=== PATIENT | female | born 1980 | race Caucasian/White ===

== ENCOUNTER 2016-12-29 00:20 | Inpatient (IN) | payer MEDICAID ==
[~2016-12-29] VITALS: Ht 160 cm; Wt 100.3 kg
[2016-12-29 00:56] VITALS: Ht 160 cm; Wt 100.3 kg
[2016-12-29 00:57] VITALS: BP 124/78; PULSE 87; RESP 18
[2016-12-29] MEDS ORDERED: LACTATED RINGER'S 1,000 ML IV PRN (01:00)
[2016-12-29] MEDS ORDERED: LACTATED RINGER'S 1,000 ML IV SCH (01:02)
[2016-12-29] MEDS ORDERED: PRENAT PO (01:06)
--- NOTE | 2016-12-29 01:10 | TRIAGE ---
OB Triage Datetime Report Generated by CPN: 12/29/2016 01:10 Datetime: 12/29/2016 00:51 Assessment Type: Triage Maternal Assessment Level of Consciousness: Fully Conscious DTR's/Clonus: DTRs 2+; No Clonus Headache: Denies Blurred Vision: No Respiratory Effort: Unlabored Nausea/Vomiting: Denies RUQ Epigastric Pain: Denies Lower Extremities Edema: None Degree: None Upper Extremities Edema: None Degree: None Facial Edema: None Fall Risk Assessment History of Falling: (0) No Secondary Diagnosis: (0) No Ambulatory Aid: (0) Bedrest/Nurse Assist IV Therapy: (0) No Gait: (0) Normal/Bedrest/Immobile Mental Status: (0) Oriented to Own Ability Fall Score: 0 Fall Risk Score Definition: No Risk: No action required Datetime: 12/29/2016 00:49 Time of Arrival: 12/29/2016 00:20 EGA: 39.3 Arrived By: Wheelchair Arrived From: Home Chief Complaint: SROM Movement: Present Rupture of Membranes: Ruptured Vaginal Bleeding: Scant Vaginal Discharge: Present Recent Sexual Intercouse: Denies Abdominal Trauma: Not Applicable Patient Complaints: Other Initial Plan: NST, SVE Datetime: 12/29/2016 00:44 Stage of : OB Triage Vaginal Exam Dilatation (cms): 3.5 Effacement (%): 70 Station: -1 Exam By: SAJI Membrane Status: Ruptured Membranes Ruptured Date/Time: 12/29/2016 00:00
[2016-12-29] MEDS ORDERED: IBUPROFEN 600 MG TAB PO PRN (01:30)
[2016-12-29] MEDS ORDERED: OXYTOCIN 30 UNITS/LR 500 ML IV PRN (01:30)
[2016-12-29] MEDS ORDERED: OXYTOCIN 30 UNITS/LR 500 ML IV SCH ×3 (01:30→12:09)
[2016-12-29] MEDS ORDERED: METHYLERGONOVINE 0.2 MG INJ IM PRN (01:30)
[2016-12-29] MEDS ORDERED: MISOPROSTOL 200 MCG TAB PR PRN (01:30)
[2016-12-29] MEDS ORDERED: LIDOCAINE 1% (MPF) 30 ML INJ INJ PRN (01:30)
[2016-12-29] MEDS ORDERED: CARBOPROST 250 MCG INJ IM PRN (01:30)
[2016-12-29] MEDS ORDERED: AMPICILLIN 2 GM/NS (PMX) 100 ML IV ONE (01:30)
[2016-12-29 02:37] LABS: ADD SCAN DIFF NO
[2016-12-29 02:40] LABS: ABNORMAL IP MESSAGE 1; BASOPHILS % 0.3 % (0.0-2.0); EOSINOPHILS % 0.3 % (0.0-7.0); HEMATOCRIT 37.6 % (37.0-47.0); HEMOGLOBIN 12.7 g/dl (12.0-16.0); LYMPHOCYTES # 1.3 10^3/ul (0.8-2.9); LYMPHOCYTES % 18.3 % (15.0-51.0); MEAN CORPUSCULAR HEMOGLOBIN 28.6 pg (29.0-33.0); MEAN CORPUSCULAR HGB CONC 33.8 g/dl (32.0-37.0); MEAN CORPUSCULAR VOLUME 84.7 fl (82.0-101.0); MEAN PLATELET VOLUME 13.8 fl (7.4-10.4); MONOCYTE # 0.4 10^3/ul (0.3-0.9); MONOCYTES % 5.1 % (0.0-11.0); NEUTROPHIL # 5.2 10^3/ul (1.6-7.5); NEUTROPHILS % 75.7 % (39.0-77.0); PLATELET COUNT 178 10^3/UL (140-415); RED BLOOD COUNT 4.44 10^6/ul (4.20-5.40); RED CELL DISTRIBUTION WIDTH 14.1 % (11.5-14.5); WHITE BLOOD COUNT 6.9 10^3/ul (4.8-10.8)
[2016-12-29 02:57] LABS: INR 0.92; PARTIAL THROMBOPLASTIN TIME 27.6 Sec (25.0-35.0); PROTIME 12.4 Sec (12.2-14.2)
--- NOTE | 2016-12-29 04:34 | HP ---
Date/Time of Note Date/Time of Note DATE: 12/29/16 TIME: 04:24 OB - History Hx of Present Free Text/Dictation 36y.o A1(ect) at 39w3d came in after srom 20min prior to arrival. initial VE cx 3-4cm80% -1 clear fluid GBS unknown admitted for expectant management with ampicillin as protocol for unknown GBS. Chief Complaint: srom Estimated Due Date: January 02, 2017 : 2 Para: 0 Spontaneous : 1 Therapeutic : 0 Care: Limited Care Ultrasounds: Normal mid trimester US Obstetrical Complications: None Medical Complications: None Past Family/Social History * Past Medical, Surgical, Family and Obstetric Histories reviewed from chart. Blood Type: A+ Rubella: immune RPR/VDRL: Negative GBS Status: Unknown HBsAG: Negative OB Admission Exam Vital Signs Vital Signs Vital Signs Date Time Temp Pulse Resp B/P Pulse Ox O2 Delivery O2 Flow Rate FiO2 12/29/16 00:57 98.5 87 18 124/78 Room Air Physical Exam HEENT: WNL Heart: Rhythm Normal Lungs: Clear, Equal Abdomen: WNL Extremities: Normal Reflexes: Normal Cervical Dilatation: 3cm Effacement: 75% Station: -1 Membranes: Ruptured Amniotic Fluid: Clear Heart Rate: 140's Accelerations: Accelerations Present Decelerations: No Decelerations Varibility: Moderate Contractions on Admission: >10 Minutes Apart Intensity: Mild Last 72 hours Lab Results CBC & BMP 12/29/16 02:20 OB Assessment/Plan Reason for admission: rupture of membranes Plan: Expectant Management KHOA WINKLER MD December 29, 2016 04:34
[2016-12-29] MEDS ORDERED: AMPICILLIN 1 GM/NS (PMX) 50 ML IV SCH (05:30)
[2016-12-29] MEDS ORDERED: FENTAnyl 2MCG/ML-ROPIV 0.2% 100 ML ONE (06:43)
[2016-12-29] MEDS ORDERED: NALOXONE (0.4 MG/ML) INJ IV PRN (07:00)
[2016-12-29] MEDS ORDERED: FENTAnyl 2MCG/ML-ROPIV 0.2% 100 ML BAG EPI SCH (07:00)
[2016-12-29] MEDS ORDERED: ONDANSETRON 4 MG INJ IV PRN ×2 (07:00→12:30)
--- NOTE | 2016-12-29 09:13 | LDN ---
Date/Time of Note Date/Time of Note DATE: 12/29/16 TIME: 09:10 Delivery Summary Normal spontaneous vaginal delivery of a baby boy from OA position shoulders delivered without any difficulties the rest of the baby's body followed cord clamped after stopped pulsation placenta spontaneous expulsion inspected complete peroneal, vaginal exam no laceration estimated blood loss 200 mL Weeks of Gestation 39 weeks 3 days Placenta Delivered: Spontaneously Meconium: none Episiotomy: No Anesthesia type: Epidural Sponge & Needle done & correct: Yes All needle counts correct: Yes Any foreign bodies felt in the: No Problems: Infant Delivery Information Sex Sex: male Apgars 1 Minute: 8 Suctioning Nose & mouth suctioned at robert: Yes Delee suction performed: No Umbilical Cord Umbilical cord with: 3 Vessels Cord presentations: no nuchal cord Cord Blood was obtained: Yes ROCIO MACIAS MD December 29, 2016 09:13
--- NOTE | 2016-12-29 09:21 | HP ---
Date/Time of Note Date/Time of Note DATE: 12/29/16 TIME: 09:13 OB - History Hx of Present Free Text/Dictation 36 years old female 001 admitted to [facility] in labor pelvic examination on admission cervix was dilated 3 cm 70% effaced vertex at -1 station with a spontaneous rupture of membrane contraction every 3- 5 minute patient is being monitored for expecting vaginal delivery Chief Complaint: Labor contraction Estimated Due Date: January 02, 2017 : 2 Para: 0 Spontaneous : 1 Therapeutic : 0 Care: Good Care Ultrasounds: Normal mid trimester US Obstetrical Complications: None Past Family/Social History * Past Medical, Surgical, Family and Obstetric Histories reviewed from chart. Rubella: immune RPR/VDRL: Negative GBS Status: Negative HBsAG: Negative OB Admission Exam Vital Signs Vital Signs Vital Signs Date Time Temp Pulse Resp B/P Pulse Ox O2 Delivery O2 Flow Rate FiO2 12/29/16 00:57 98.5 87 18 124/78 Room Air Physical Exam HEENT: WNL Heart: Rhythm Normal Lungs: Clear, Equal Abdomen: WNL Extremities: Normal Reflexes: Normal Cervical Dilatation: 3cm Effacement: 75% Station: -1 Membranes: Ruptured Amniotic Fluid: Clear Heart Rate: 130's Accelerations: Accelerations Present Decelerations: No Decelerations Varibility: Moderate Contractions on Admission: < 5 Minutes Apart Intensity: Moderate Last 72 hours Lab Results CBC & BMP 12/29/16 02:20 ROCIO MACIAS MD December 29, 2016 09:21
[2016-12-29 11:15] VITALS: BP 115/66; PULSE 86; RESP 18
[2016-12-29 11:45] VITALS: BP 124/59; PULSE 101; RESP 17
[2016-12-29] MEDS ORDERED: ACETAMINOPHEN 325 MG TAB PO PRN (12:30)
[2016-12-29] MEDS ORDERED: LANOLIN 7 GM TUBE TOP PRN (12:30)
[2016-12-29] MEDS ORDERED: OXYCODONE/ASPIRIN (4.88/325) TAB PO PRN ×2 (12:30)
[2016-12-29] MEDS ORDERED: BENZOCAINE 20% 56 ML SPRAY TOP PRN (12:30)
[2016-12-29] MEDS ORDERED: WITCH HAZEL/GLYCERIN PAD PR PRN (12:30)
[2016-12-29] MEDS ORDERED: DIBUCAINE 1% 30 GM OINT PR PRN (12:30)
[2016-12-29] MEDS ORDERED: ACETAMINOPHEN/CODEINE #3 TAB PO PRN ×2 (12:30)
[2016-12-29] MEDS: IBUPROFEN 600 MG TAB PO SCH ×3 (12:48→23:56)
[2016-12-29 16:30] VITALS: BP 106/62; PULSE 85; RESP 17
[2016-12-29 19:30] VITALS: BP 100/73; PULSE 93; RESP 18
[2016-12-29] MEDS: SENNA/DOCUSATE NA (8.6MG/50MG) TAB PO SCH (21:09)
--- NOTE | 2016-12-29 22:02 | NSTRPT ---
NST Information Datetime Report Generated by CPN: 12/29/2016 22:02 Datetime: 12/28/2016 10:35 NST Information EGA: 39.2 Test Number: 8 Time on Monitor: 12/28/2016 11:05 Time off Monitor: 12/28/2016 11:26 NST Duration (Min): 21 Reason for NST: Polyhydramnios Pulse: 78 Resp: 16 SBP: 104 DBP: 78 Test Evaluation NST Interventions: None; PO Hydration Patient States Movement: Present Contraction Frequency: X1 FHR Baseline : 125 Variability: Moderate 6-25bpm Accelerations: 15X15 Decelerations: None FHR Category: Category I NST Results: Reactive Comments: To u/s, CEPHALIC, AKILAH 14.7 1134-Home undelivered with labor precautions, kick count instructions reviewed and follow u p NST appt given. States understanding and denies further questions at this time. Electronically Signed By E-Signature: with User ID: [email or web address] Datetime: 12/24/2016 11:22 NST Information EGA: 38.5 NST Duration (Min): 49 Datetime: 12/21/2016 10:33 NST Information EGA: 38.2 NST Duration (Min): 22 Datetime: 12/17/2016 10:52 NST Information EGA: 37.5 NST Duration (Min): 24 Datetime: 12/14/2016 10:25 NST Information EGA: 37.2 NST Duration (Min): 38 Datetime: 12/10/2016 09:57 NST Information EGA: 36.5 NST Duration (Min): 22 Datetime: 12/07/2016 13:50 NST Information EGA: 36.2 NST Duration (Min): 33 Datetime: 12/02/2016 11:17 NST Information EGA: 35.4 Datetime: 12/02/2016 10:02 NST Duration (Min): 31
[2016-12-30 03:50] VITALS: BP 103/67; PULSE 85; RESP 20
[2016-12-30] MEDS: IBUPROFEN 600 MG TAB PO SCH ×4 (05:43→23:51)
[2016-12-30 08:00] VITALS: BP 111/72; PULSE 76
[2016-12-30 08:39] LABS: ADD SCAN DIFF NO
[2016-12-30 09:04] LABS: ABNORMAL IP MESSAGE 1; BASOPHILS % 0.4 % (0.0-2.0); EOSINOPHILS # 0.1 10^3/ul (0.0-0.5); EOSINOPHILS % 0.9 % (0.0-7.0); HEMOGLOBIN 11.3 g/dl (12.0-16.0); LYMPHOCYTES # 2.3 10^3/ul (0.8-2.9); LYMPHOCYTES % 27.4 % (15.0-51.0); MEAN CORPUSCULAR HEMOGLOBIN 28.4 pg (29.0-33.0); MEAN CORPUSCULAR HGB CONC 32.3 g/dl (32.0-37.0); MEAN CORPUSCULAR VOLUME 87.9 fl (82.0-101.0); MEAN PLATELET VOLUME 13.3 fl (7.4-10.4); MONOCYTE # 0.4 10^3/ul (0.3-0.9); NEUTROPHIL # 5.6 10^3/ul (1.6-7.5); NEUTROPHILS % 65.7 % (39.0-77.0); PLATELET COUNT 147 10^3/UL (140-415); RED BLOOD COUNT 3.98 10^6/ul (4.20-5.40); RED CELL DISTRIBUTION WIDTH 14.4 % (11.5-14.5); WHITE BLOOD COUNT 8.5 10^3/ul (4.8-10.8)
[2016-12-30] MEDS: SENNA/DOCUSATE NA (8.6MG/50MG) TAB PO SCH ×2 (09:56→20:53)
--- NOTE | 2016-12-30 13:17 | PN ---
Date/Time of Note Date/Time of Note DATE: 12/30/16 TIME: 13:15 OB Subjective Subjective Subjective December 30, 2016 day 1 Laboratory Tests Test 12/30/16 08:05 White Blood Count 8.510^3/ul Red Blood Count 3.9810^6/ul Hemoglobin 11.3g/dl Hematocrit 35.0% Mean Corpuscular Volume 87.9fl Mean Corpuscular Hemoglobin 28.4pg Mean Corpuscular Hemoglobin Concent 32.3g/dl Red Cell Distribution Width 14.4% Platelet Count 00518^3/UL Mean Platelet Volume 13.3fl Neutrophils % 65.7% Lymphocytes % 27.4% Monocytes % 5.0% Eosinophils % 0.9% Basophils % 0.4% Nucleated Red Blood Cells % 0.0/100WBC Neutrophils # 5.610^3/ul Lymphocytes # 2.310^3/ul Monocytes # 0.410^3/ul Eosinophils # 0.110^3/ul Basophils # 0.010^3/ul Nucleated Red Blood Cells # 0.010^3/ul Current Medications Medications (Trade) Dose Ordered Sig/Roman Route PRN Reason Start Time Stop Time Status Last Admin Dose Admin Lactated Ringer's 1,000 ml @ 125 mls/hr Q8H IV 12/29/16 01:02 12/29/16 12:13 DC 12/29/16 02:23 Ampicillin 100 ml @ 100 mls/hr ONCE ONCE IV 12/29/16 01:30 12/29/16 02:29 DC 12/29/16 02:23 Ampicillin (Ampicillin 1 Gm/ NS (Pmx)) 50 ml @ 100 mls/hr Q4H IV 12/29/16 05:30 12/29/16 12:13 DC 12/29/16 06:00 Lidocaine 30 ml 30 ml ONCE PRN INJ EPISIOTOMY/TEARING 12/29/16 01:30 12/29/16 12:13 DC Oxytocin/Lactated Ringer's 500 ml @ 125 mls/hr ONCE -MAY REPEAT X1 IV 12/29/16 01:30 12/29/16 12:13 DC 12/29/16 08:59 Oxytocin/Lactated Ringer's 500 ml @ 125 mls/hr ONCE IV 12/29/16 01:30 12/29/16 12:13 DC 12/29/16 09:26 Ibuprofen 600 mg 600 mg ONCE PRN PO Mild Pain (Pain Score 1-3) 12/29/16 01:30 12/29/16 12:13 DC Lactated Ringer's 1,000 ml @ 20 mls/hr Q24H PRN IV PRE-EPIDURAL BOLUS 12/29/16 01:00 12/29/16 12:13 DC 12/29/16 06:01 Oxytocin/Lactated Ringer's 500 ml @ 0 mls/hr ONCE PRN IV For Hemorrhage Management 12/29/16 01:30 12/29/16 12:13 DC Methylergonovine Maleate (Methergine) 0.2 mg ONCE PRN IM VAGINAL BLEEDING 12/29/16 01:30 12/29/16 12:13 DC Carboprost Tromethamine (Hemabate) 250 mcg ONCE PRN IM VAGINAL BLEEDING 12/29/16 01:30 12/29/16 12:13 DC Misoprostol 1000 mcg 1,000 mcg ONCE PRN VA VAGINAL BLEEDING 12/29/16 01:30 12/29/16 12:13 DC Fentanyl/ Ropivacaine 100 ml @ STK-MED ONCE .ROUTE 12/29/16 06:43 12/29/16 06:44 DC Ondansetron HCl (Zofran Inj) 4 mg Q6H PRN IV NAUSEA AND/OR VOMITING 12/29/16 07:00 12/29/16 12:13 DC Naloxone HCl (Narcan) 0.2 mg Q2M PRN IV FOR RESP RATE 8 OR LESS 12/29/16 07:00 12/29/16 12:13 DC Fentanyl/ Ropivacaine 100 ml 100 ml EPIDURAL (PCEA) EPI 12/29/16 07:00 12/29/16 12:13 DC Oxytocin/Lactated Ringer's 500 ml @ 125 mls/hr Q4H IV 12/29/16 12:09 12/29/16 20:08 DC 12/29/16 14:20 Ibuprofen (Motrin) 600 mg Q6 PO 12/29/16 12:30 12/30/16 12:14 Acetaminophen (Tylenol Tab) 650 mg Q4H PRN PO PAIN LEVEL 1-5 12/29/16 12:30 Acetaminophen/ Codeine Phosphate (Tylenol No.3) 1 tab Q4H PRN PO PAIN LEVEL 1-5 12/29/16 12:30 Acetaminophen/ Codeine Phosphate (Tylenol No.3) 2 tab Q4H PRN PO PAIN LEVEL 6-10 12/29/16 12:30 Oxycodone/Aspirin (Percodan) 1 tab Q3H PRN PO PAIN LEVEL 1-5 12/29/16 12:30 Oxycodone/Aspirin (Percodan) 2 tab Q3H PRN PO PAIN LEVEL 6-10 12/29/16 12:30 Ondansetron HCl (Zofran Inj) 4 mg Q6H PRN IV NAUSEA AND/OR VOMITING 12/29/16 12:30 Senna/Docusate Sodium (Senokot-S) 1 tab BID PO 12/29/16 21:00 12/30/16 09:56 Witch Elvira/ Glycerin (Tucks Pads) 1 pad BEDSIDE MEDICATION PRN VA HEMORRHOID/EPISIOTMY PAIN 12/29/16 12:30 12/29/16 12:50 Benzocaine (Dermoplast Rosebud) 1 spray BEDSIDE MEDICATION PRN TOP HEMORRHOID/EPISIOTMY PAIN 12/29/16 12:30 12/29/16 12:50 Dibucaine (Nupercainal) 1 applic BEDSIDE MEDICATION PRN VA HEMORRHOID/EPISIOTMY PAIN 12/29/16 12:30 12/29/16 12:51 Lanolin (Otw-Q-Gkobjj) 1 applic BEDSIDE MEDICATION PRN TOP BEDSIDE FOR ANN TO NIPPLES 12/29/16 12:30 12/29/16 12:49 Measles/Mumps/ Rubella Vaccine Live (Mmr Ii Vaccine) 0.5 ml ONCE ONCE SC* 12/31/16 09:00 12/31/16 09:01 day 1 hospital visit Patient is doing well, Ambulatory She is afebrile Abdomen is soft , Fundus is firm Moderate amount of lochia Breasts are soft, Nipples are intact No calf tenderness. Perineum is healing well. Breast feeding the new born. RL PETERS MD December 30, 2016 13:17
[2016-12-30 16:00] VITALS: BP 112/62; PULSE 77; RESP 18
[2016-12-30 19:55] VITALS: BP 91/56; PULSE 82; RESP 21
[2016-12-31 03:45] VITALS: BP 118/67; PULSE 74; RESP 20
[2016-12-31] MEDS: IBUPROFEN 600 MG TAB PO SCH ×3 (05:40→18:00)
[2016-12-31 07:45] VITALS: BP 103/60; RESP 17
[2016-12-31] MEDS: SENNA/DOCUSATE NA (8.6MG/50MG) TAB PO SCH (08:36)
[2016-12-31] MEDS ORDERED: MEASLES,MUMPS,RUBELLA VACCINE INJ SC* ONE (09:00)
--- NOTE | 2016-12-31 09:53 | DS ---
Date/Time of Note Date/Time of Note DATE: 12/31/16 TIME: 09:51 Discharge Summary Admission/Discharge Info Admit Date/Time December 29, 2016 at 01:00 Discharge Date/Time December 31 at 10 AM Final Diagnosis Term normal vaginal delivery Patient Condition: Good Procedures Normal spontaneous vaginal delivery Hx of Present Illness Term Hospital Course Satisfactory uneventful Home Meds Reported Medications Multivit/Min/Fol Ac/Iron/Pren* ( S*) 1 Tab Tab, 1 TAB PO DAILY, TAB 12/29/16 Follow-up Plan Post normal vaginal delivery instructions given recommended patient to make appointment to be seen at the clinic in 2 weeks ROCIO MACIAS MD December 31, 2016 09:53
[2016-12-31] MEDS ORDERED: DIPHTH/TET/ACEL PERTUSS (ADULT) 0.5 ML VIAL IM* ONE (10:00)
--- NOTE | 2016-12-31 17:01 | QN ---
Documentation Comment With signed consent for circumcision under sterile condition circumcision performed using Gomco 1.1 in usual manner no bleeding noted, postprocedure care of the circumcision site and instructions discussed with the patient's mother and grandmother present, all question answered ROCIO MACIAS MD December 31, 2016 17:01
== END 2016-12-31 18:42 | disposition home or self-care (01) | DRG 775 ==
LOC: L-D 00:20 → OBT 00:20 → L-D 01:00 → PP1 11:11
PROVIDERS: ADMIT Obstetrics & Gynecology; ATTEND Obstetrics & Gynecology
PROC: 10E0XZZ Delivery of Products of Conception, External Approach (ICD-10-PCS; principal; 2016-12-29)
DX: O80 Encounter for full-term uncomplicated delivery (principal); Z37.0 Single live birth; Z3A.39 39 weeks gestation of pregnancy
CPT/HCPCS: 62319; 85025; 85610; 85730; 86592; 86900; 86901; 90715; G0463; J0290; J2590; J3010; J7120